=== PATIENT | female | born 1985 | race African-American/Black ===

== ENCOUNTER 2021-09-16 04:33 | Emergency (ER) | payer MEDICAID ==
[~2021-09-16] VITALS: Ht 160 cm; Wt 57.0 kg
[2021-09-16 04:53] VITALS: BP 136/100
== END 2021-09-16 08:14 | disposition left against medical advice (07) ==
LOC: ER 04:33
DX: Z53.21 Procedure and treatment not carried out due to patient leaving prior to being seen by health care provider (principal)
CPT/HCPCS: 81025